=== PATIENT | female | born 1955 ===

== ENCOUNTER 2018-11-17 05:00 | Day surgery (SDC) | payer OTHER ==
[~2018-11-17 05:00] MED LIST: ADVIL PM CAPLE1 EACH; ALENDRONATE SOD70 MG; ASPIR 8181 MG; CALCIUM 600MG; CIDAFLEX TABLE1 EACH; COLLAGEN; CYANOCOBALAMIN 1000 MG; ETODOLAC500 M1; GALZIN50 MG; MAGNESIUM250 M1; VITAMINA C; [UNRECOGNIZED DRUG - OTHER]
[2018-11-17] MEDS ORDERED: MACROBID 100 M100 MG PO (10:30)
[2018-11-17] MEDS ORDERED: ULTRACET PO (10:30)
== END 2018-11-17 14:06 | disposition home or self-care (01) ==
LOC: CIR.AMB 05:00
DX: N39.3 Stress incontinence (female) (male) (principal)
CPT/HCPCS: 57288; C1771